=== PATIENT | female | born 1975 | race Caucasian/White ===

== ENCOUNTER 2023-04-21 19:01 | Emergency (ER) | payer OTHER, SELFPAY ==
[2023-04-21 19:03] VITALS: BP 235/164; BMI 41.4
--- NOTE | 2023-04-21 19:08 | EDRN ---
Pt is visibly upset from previous EKG, will recheck bp when pt had calmed down.
[2023-04-21 19:31] VITALS: BP 208/142
[2023-04-21 20:00] VITALS: BP 168/116
[2023-04-21 21:02] LABS: % Basophils 0.3 % (0-2); % Eosinophils 1.9 % (0-6); % Immature Granulocytes 0.5 % (0-0.5); % Lymphocytes 26.7 % (20.5-51.1); % Monocytes 8.2 % (1.7-9.3); % Neutrophils 62.4 % (42.2-75.2); Absolute Eosinophils 0.1 10^3/uL (0-0.7); Absolute Lymphocytes 1.5 10^3/uL (1.2-3.4); Absolute Monocytes 0.5 10^3/uL (0.1-0.6); Absolute Neutrophils 3.6 10^3/uL (1.4-6.5); Hematocrit 39.9 % (37.0-47.0); Hemoglobin 14.6 g/dL (12.0-16.0); Mean Corp Hgb Conc. 36.6 g/dL (33.0-37.0); Mean Corpuscular Hgb 34.5 pg (27.0-31.0); Mean Corpuscular Volume 94.3 fL (81.0-99.0); Mean Platelet Volume 9.3 fL (7.4-10.4); Nucleated Red Blood Cells % 0 %; Platelet Count 277 10^3/uL (130-400); Red Blood Cell Count 4.23 10^6/uL (4.20-5.40); Red Cell Dist. Width 13.7 % (11.5-14.5); White Blood Cell Count 5.7 10^3/uL (4.8-10.8)
[2023-04-21 21:14] LABS: ALT (SGPT) 94 U/L (0-35); AST (SGOT) 181 U/L (14-36); Albumin 4.5 g/dl (3.5-5.0); Alkaline Phosphatase 163 U/L (38-126); Blood Urea Nitrogen 6 mg/dl (7-17); Calcium 8.8 mg/dl (8.4-10.2); Carbon Dioxide 29 mmol/L (22-30); Chloride 101 mmol/L (98-107); Estimated Creatinine Clearance > 125 ml/min; Glucose 114 mg/dl (70-99); Potassium 4.1 mmol/L (3.5-5.1); Sodium 136 mmol/L (135-145); Total Bilirubin 1.3 mg/dl (0.2-1.3); Total Protein 7.6 g/dl (6.3-8.2); eGFR > 60.00
[2023-04-21 21:21] LABS: COVID-19 Antigen Negative (Negative)
[2023-04-21 21:29] LABS: Troponin I < 0.012 ng/ml
[2023-04-21 21:54] VITALS: BP 186/119
--- NOTE | 2023-04-21 23:42 | ED.GENMED ---
History of Present Illness
General
Chief Complaint: Cough
Source: patient
Exam Limitations: none
Time Seen by Provider: 04/21/23 20:35
Nursing documentation reviewed up to this point in time: agreed with
Travel History
Have you had any contact with someone who has COVID-19?: No
Do you have any symptoms of coronavirus? Fever > 100 degrees, chills, cough, shortness of breath, sore throat, loss of taste or smell, muscle aches, or headache?: No
History of Present Illness
History of Present Illness:
Patient to ED with complaint of cough. Symptms started on Wednesday. She was seen by urgent care, told she was having a heart attack and sent to ED. She denies any cp/pressure, SOB. Denies fever/chills.
Past History
Past History
ED Past Medical History: HTN and Other (glaucoma)
ED Past Surgical History: Tonsilectomy
Social History
Tobacco: Non-smoker
Alcohol: None
Drug: None
Review of Systems
Review of Systems
Allergies reviewed?: Yes
All Other Systems: ROS reviewed and negative except as documented in HPI and ROS
Constitutional: Reports no symptoms
EENT: Reports no symptoms
Respiratory: Reports cough
Cardiac: Reports no symptoms
ABD/GI: Reports no symptoms
: Reports no symptoms
Musculoskeletal: Reports no symptoms
Skin: Reports no symptoms
Neurological: Reports no symptoms
Psychiatric: Reports no symptoms
Phy Exam
General Physical Exam
General Presentation: well appearing and no apparent distress
General age: appears stated age
General Skin: warm and dry
General Habitus: normal
General Mental: alert
Cardiovascular Exam
Cardiovascular Exam: regular rate/rhythm and no edema
Pulmonary Exam
Pulmonary Exam: lungs clear, no respiratory distress and chest non tender
Cough: coarse cough and non productive cough
Musculoskeletal Exam
Musculoskeletal Exam: full ROM
Skin Exam
Skin Exam: normal color, warm/dry and no rash
Psychiatric Exam
Psychiatric Exam: normal mood/affect
Course
Orders/Labs/Results
Orders:
Orders
04/21/23 19:07
EKG [Electrocardiogram (*1)] Urgent
Reason for Study: Fatigue / Weakness
EKG- Treatment ONCE
04/21/23 20:43
CR Chest - 2 Views Urgent
Comment:
Reason For Exam: cough
04/21/23 20:48
COVID-19 Antigen Urgent
Source: Nasal Swab
Complete Blood Count/With Diff Urgent
Comprehensive Metabolic Panel Urgent
Troponin I Urgent
Influenza A+B Rapid Molecular Urgent
SHANNON Source: Nasal Swab
Specimen Description:
Abnormal Lab Results
04/21/23
20:48
MCH 34.5 H pg
(27.0-31.0)
BUN 6 L mg/dl
(7-17)
Glucose 114 H mg/dl
(70-99)
AST 181 H U/L
(14-36)
ALT 94 H U/L
(0-35)
Alkaline Phosphatase 163 H U/L
(38-126)
04/21/23 20:48
04/21/23 20:48
Vital Signs
Initial and Last Documented VS:
Initial Vital Signs
Temp Pulse Resp BP Pulse Ox
99 F 108 16 235/164 98
04/21/23 19:03 04/21/23 19:03 04/21/23 19:03 04/21/23 19:03 04/21/23 19:03
Last Documented Vital Signs
Temp Pulse Resp BP Pulse Ox
98.3 F 101 18 186/119 98
04/21/23 19:48 04/21/23 22:15 04/21/23 22:15 04/21/23 21:54 04/21/23 22:15
*Radiology
Radiology exam reviewed: radiology read reviewed
*Pulse Oximetry
Patient hypoxic: no
*EKG
Rate: normal
Rhythm: sinus
*Critical Care Note
Total Time (30-74mins, 75-104mins- exclusive of procedures): Not Applicable
ED Attending Note
-
Portions of this chart may have been created with voice recognition software.� Occasional wrong word or��sound alike� substitutions may have occurred due to the inherent limitations of voice recognition software.
Discharge Plan
Departure
Patient Disposition: Home (Routine Discharge)
Date of Disposition: 04/21/23
Time of Disposition: 22:08
Patient with high blood pressure during this ER visit?: No
Condition: Good
Covid-19: Not Applicable
Discharge Problem:
Cough in adult
Instructions: Cough, Adult (DC)
Prescriptions:
No Action
cetirizine [Zyrtec] 10 mg Tablet
10 mg PO HS
diphenhydramine HCl [Benadryl] 25 mg Capsule
50 mg PO HS
ibuprofen 200 mg Capsule
400 mg PO Q6H
Referrals:
UNKNOWN - PT DOES,NOT KNOW [Family Provider] -
Activity Restrictions/Additional Instructions:
Follow up with your family doctor. Return to the emergency department immediately for any difficulty breathing.
Interventions
Interventions:
*Risk Screen - Suicide Last Done: 04/21/23 19:03
*General Assessment Last Done: 04/21/23 22:15
*Neglect/Abuse Screening Last Done: 04/21/23 19:03
ED- Fall Risk Assessment Last Done: 04/21/23 19:45
*ED COVID-19 Vaccine History Last Done: 04/21/23 19:03
*Nursing Disposition Last Done: 04/21/23 22:15
ED- Pulmonary Assessment Last Done: 04/21/23 19:45
Discharge Date and Time
Discharge Date/Time: 04/21/23 22:17
== END 2023-04-21 22:17 | disposition home or self-care (01) ==
LOC: EMR 19:01
PROVIDERS: Nurse Practitioner; EMERGENCY PHYSICIAN Emergency Medicine
DX: R05.9 Cough, unspecified (principal)
CPT/HCPCS: 99285; 71046; 80053; 84484; 85025; 87502; 87811; 93005

== ENCOUNTER → 2023-05-11 07:03 | Outpatient (REF) | payer OTHER, SELFPAY | LOC: HWRCS 07:03 | PROVIDERS: ATTENDING PHYSICIAN Nurse Practitioner Family | DX: R94.31 Abnormal electrocardiogram [ECG] [EKG] (principal); I10 Essential (primary) hypertension; E78.2 Mixed hyperlipidemia; Z68.41 Body mass index [BMI] 40.0-44.9, adult | CPT/HCPCS: 93306 ==

== ENCOUNTER → 2024-02-29 11:52 | Outpatient (REF) | payer OTHER, SELFPAY | LOC: PAVMRI 11:52 | PROVIDERS: ATTENDING PHYSICIAN Nurse Practitioner Primary Care | DX: R25.1 Tremor, unspecified (principal); Z82.0 Family history of epilepsy and other diseases of the nervous system | CPT/HCPCS: 70553; A9575 ==

== ENCOUNTER → 2024-08-07 07:33 | Outpatient (REF) | payer OTHER, SELFPAY | LOC: HWRAD 07:33 | PROVIDERS: ATTENDING PHYSICIAN Nurse Practitioner Primary Care | DX: E78.2 Mixed hyperlipidemia (principal); R73.03 Prediabetes; R79.89 Other specified abnormal findings of blood chemistry; F10.11 Alcohol abuse, in remission | CPT/HCPCS: 76700 ==

== ENCOUNTER → 2024-08-21 14:44 | Outpatient (REF) | payer OTHER, SELFPAY | LOC: EMG 14:44 | PROVIDERS: ATTENDING PHYSICIAN Nurse Practitioner Primary Care | DX: R20.0 Anesthesia of skin (principal) | CPT/HCPCS: 95886; 95911 ==

== ENCOUNTER → 2024-09-20 14:18 | Outpatient (REF) | payer OTHER, SELFPAY | LOC: RCS 14:18 | PROVIDERS: ATTENDING PHYSICIAN Nurse Practitioner Primary Care | DX: R94.31 Abnormal electrocardiogram [ECG] [EKG] (principal); I10 Essential (primary) hypertension; R06.09 Other forms of dyspnea | CPT/HCPCS: 93017; 93350; Q9950 ==

== ENCOUNTER 2024-10-27 06:20 | Day surgery (SDC) | payer OTHER, SELFPAY ==
[2024-10-11 14:10] VITALS: BMI 37.3
[2024-10-11 14:36] LABS: Hematocrit 32.2 % (37.0-47.0); Hemoglobin 10.8 g/dL (12.0-16.0); Mean Corp Hgb Conc. 33.5 g/dL (33.0-37.0); Mean Corpuscular Volume 83.6 fL (81.0-99.0); Platelet Count 366 10^3/uL (130-400); Red Cell Dist. Width 14.3 % (11.5-14.5)
[2024-10-11 15:29] LABS: Blood Urea Nitrogen 21 mg/dl (7-17); Calcium 9.6 mg/dl (8.4-10.2); Carbon Dioxide 31 mmol/L (22-30); Chloride 101 mmol/L (98-107); Estimated Creatinine Clearance 72 ml/min; Glucose 96 mg/dl (70-99); Potassium 4.8 mmol/L (3.5-5.1); Sodium 138 mmol/L (135-145); eGFR 50.10
--- NOTE | 2024-10-20 10:08 | PTCARENOTE ---
Patients 10/11 creat- 1.3; GFR 50/10- [place] @ Dr. Kay office notified
[2024-10-27] VITALS (9 sets, daily range): BP systolic 110–144; BP diastolic 54–91; BMI 37.3
[2024-10-27] MEDS: TYLENOL 1000 MG PO (11:23)
[2024-10-27] MEDS: NORMOSOL-R/PLASMALYTE-A 1000 IV (11:35)
--- NOTE | 2024-10-27 11:39 | HP.FOC2 ---
Focused History & Physical
Chief Complaint
HPI:
Chief Complaint: Umbilical hernia
HPI / Indication for Planned Procedure: The patient is a 49-year-old female recently seen in outpatient surgical evaluation secondary to an area of visible swelling at her umbilicus. It has slightly increased in size and become more prominent since
losing 30 pounds with intentional weight loss. There is discomfort in the area particularly after meals. No symptoms suggestive of incarceration with obstruction or strangulation. Physical examination confirmed the presence of a moderate-sized
umbilical hernia with eversion of the umbilical stalk. Fascial defect estimated to be up to 3 cm. After discussions with patient regarding treatment options she wished to pursue operative correction. Patient presents today for robotic umbilical
hernia repair with mesh.
Relevant Past Medical History: Other (Asthma, depression, allergic rhinitis, glaucoma, hypertension, GERD)
Relevant Social History: Negative
Relevant Family History: Negative
Relevant Past Surgical History: Positive for (Bilateral mastectomy, uterine ablation, tonsils, D&C)
Review of Systems
Review of Pertinent Systems: All Systems Negative
Medication
See Medication form for detailed medications: Yes
Medication List (including Herbals & OTC):
cetirizine 10 mg tablet (Zyrtec) 10 mg PO HS 09/03/22
diphenhydramine HCl 25 mg capsule (Benadryl) 50 mg PO HS 09/03/22
B Complex 1 tab PO DAILY 10/20/24
Medical Marijuana 1 dose inhalation PRN PRN y 10/20/24
alpha lipoic acid 1 tab PO DAILY 10/20/24
hydrochlorothiazide 12.5 mg tablet 12.5 mg PO DAILY 10/20/24
loratadine 10 mg tablet (Claritin) 10 mg PO DAILY 10/20/24
metoprolol succinate 25 mg PO 1XD 10/20/24
omeprazole 20 mg capsule,delayed release 20 mg PO DAILY 10/20/24
sertraline 50 mg tablet 50 mg PO DAILY 10/20/24
trazodone 50 mg tablet 50 mg PO HS 10/20/24
triamcinolone acetonide 55 mcg nasal spray aerosol (Nasacort) 1 spray intranasal DAILY 10/20/24
Medications Reviewed: Yes
Allergies and Reactions
Patient has Allergies: Yes
Noted Allergies and Reactions:
Allergy/AdvReac Type Severity Reaction Status Date / Time
Penicillins Allergy Rash Verified 10/27/24 11:10
pollen extracts Allergy congestion Verified 10/27/24 11:10
Pertinent Physical Exam
All Other Systems: Negative
Head/Neck: Normal
Lungs: Normal
Heart: Normal
Abdomen: Other (Chronically incarcerated umbilical hernia with estimated 3 cm fascial defect)
Extremities: Normal
Neurological: Normal
Diagnosis / Assessment
Patient is a 49-year-old female presenting for scheduled operative correction of a symptomatic umbilical hernia
Plan / Procedure
Robotic assisted laparoscopic repair of umbilical hernia with mesh
Anesthesia/Sedation to be done by Anesthesia Provider: Yes
[2024-10-27 11:51] LABS: Hematocrit 33.5 % (37.0-47.0); Hemoglobin 11.1 g/dL (12.0-16.0); Mean Corp Hgb Conc. 33.1 g/dL (33.0-37.0); Mean Corpuscular Volume 83.8 fL (81.0-99.0); Platelet Count 377 10^3/uL (130-400); Red Cell Dist. Width 14.3 % (11.5-14.5)
[2024-10-27 12:20] LABS: Blood Urea Nitrogen 20 mg/dl (7-17); Calcium 9.0 mg/dl (8.4-10.2); Carbon Dioxide 27 mmol/L (22-30); Chloride 104 mmol/L (98-107); Estimated Creatinine Clearance 78 ml/min; Glucose 117 mg/dl (70-99); Potassium 4.0 mmol/L (3.5-5.1); Sodium 138 mmol/L (135-145); eGFR 55.15
--- NOTE | 2024-10-27 14:18 | W.IMMPOSTOP ---
Surgical Immed Post Op Note
-
Primary Surgeon: Jayce Todd MD
Assisting Surgeon: Tereza Kim PA-C
Pre-op Diagnosis: Chronically incarcerated umbilical hernia
Post-op Diagnosis: Chronically incarcerated umbilical hernia; 3.5 cm
Procedure Performed: Robotic assisted laparoscopic ABIGAIL repair incarcerated umbilical hernia with mesh; Bard soft 14 cm x 12 cm
Anesthesia Type: GETA +0.25% Marcaine
Specimen / Cultures: None
Estimated Blood Loss: 6 mL
Complications: None immediate
Operative Findings: Incidental finding of epiploic infarction or inflammation at the junction of the descending and sigmoid colon but there did not appear to be primary colitis. No purulence just induration and inflammation of a single epiploic
appendage.
Chronically incarcerated umbilical hernia containing omentum which was able to be reduced safely.
Transabdominal preperitoneal repair with left lateral abdominal robotic docking. Fascial defect 3.5 cm after cleared. Closure of fascia with 0 PDS STRATAFIX symmetric in a running continuous manner, double layer. Underlay preperitoneal mesh, Bard
soft mesh 14 cm vertically by 12 cm in width secured with 2-0 Vicryl suture centrally and along the right and left lateral borders of the mesh to posterior sheath. Peritoneal flap closed with 2-0 Monocryl STRATAFIX spiral suture. Negative pressure
Tegaderm gauze umbilical dressing placed. Glue dressings at robotic surgical sites.
The assistance of Tereza Kim PA-C was required due to the complexity of the procedure. During the procedure Tereza Kim PA-C assisted with port placement, robotic instrumentation and suture material exchanges, and closure of the surgical incision
sites. I was present for the entirety of the operative procedure.
--- NOTE | 2024-10-27 14:22 | OR.RPT ---
Operative Report
Operative Report
Date of operative procedure: 10/27/2024
Primary Surgeon: Jayce Todd MD
[facility] Counselor: Tereza iKm PA-C
Pre-op Diagnosis: Chronically incarcerated umbilical hernia
Post-op Diagnosis: Chronically incarcerated umbilical hernia, 3.5 cm
Procedure Performed: Robotic assisted laparoscopic ABIGAIL repair umbilical hernia with mesh; Bard soft mesh 14 cm x 12 cm
Anesthesia: GETA +0.25% Marcaine
Specimen / Cultures: None/none
Estimated Blood Loss: 6 mL
Complications: None immediate
Indications for Operative Procedure: The patient is a 49-year-old female recently seen in outpatient surgical evaluation secondary to an area of visible swelling at her umbilicus. It has slightly increased in size and become more prominent since
losing 30 pounds with intentional weight loss. There is discomfort in the area particularly after meals. No symptoms suggestive of incarceration with obstruction or strangulation. Physical examination confirmed the presence of a moderate-sized
umbilical hernia with eversion of the umbilical stalk. Fascial defect estimated to be up to 3 cm. After discussions with patient regarding treatment options she wished to pursue operative correction. Patient presents today for robotic umbilical
hernia repair with mesh.
Brief Summary of Operative Findings: Incidental finding of an epiploic infarction or inflammation at the junction of the descending and sigmoid colon but there did not appear to be colitis/diverticulitis nor active infection. The epiploic
appendage was not necrotic. No purulence just induration and inflammation of a single epiploic appendage so I proceeded with the planned umbilical hernia repair.
The chronically incarcerated umbilical hernia contained omentum which was able to be reduced safely.
Transabdominal preperitoneal repair with left lateral abdominal robotic docking. Fascial defect 3.5 cm after cleared. Closure of fascia with 0 PDS STRATAFIX symmetric in a running continuous manner, double layer. Underlay preperitoneal mesh, Bard
soft mesh 14 cm vertically by 12 cm in width secured with 2-0 Vicryl suture centrally and along the right and left lateral borders of the mesh to posterior sheath. Peritoneal flap closed with 2-0 Monocryl STRATAFIX spiral suture. Negative pressure
Tegaderm gauze umbilical dressing placed. Glue dressings at robotic surgical sites.
Operation in Detail: The patient was identified in the preoperative holding area. I confirmed the umbilical surgical site/location with the patient preoperatively. She was interviewed by the anesthesia and nursing staff then brought back to the
operating room. The patient was placed on the operating table in supine position. The bilateral upper extremities were carefully padded and tucked at the side utilizing the arm guard positioning system. Pneumatic compression boots were on the
bilateral lower extremities. Following induction of general endotracheal anesthesia the patient was administered Ancef 2 g IV for prophylactic antibiotic coverage. The patient's anterior abdominal wall was now widely and sterilely prepped with
ChloraPrep and then draped in the usual manner. The surgical time out was completed and the procedure was confirmed.
I initially proceeded with Veress needle insufflation at the left subcostal midclavicular line location. Once insufflated to 12 mmHg pressure then an 8 mm trocar was placed along the left lateral abdominal wall fci between the left costal
margin and the left ASIS and a palms breath out from the anticipated left lateral boarder of the mesh placement. The robotic scope was now inserted. There was no evidence of iatrogenic injury from access. The Veress needle was withdrawn. A left
subcostal lateral 8 mm trocar and a left lower quadrant 8 mm trocar just superior/medial to the ASIS were now placed under direct visualization. The patient was then transition into slight Trendelenburg and right side down to aid in exposure of the
anterior abdominal wall. The robot was then docked.
Upon inspection of the abdominal cavity an incidental finding of an epiploic infarction or inflammation at the junction of the descending and sigmoid colon was identified in the left lower quadrant. There did not appear to be
colitis/diverticulitis, bowel wall thickening nor active infection. The epiploic appendage was not necrotic. No purulence, just induration and inflammation of a single epiploic appendage so I proceeded with the planned umbilical hernia repair.
At the surgeon console inspection confirmed the presence of chronically incarcerated umbilical hernia containing omentum. The omentum was then carefully grasped and able to be manually reduced from the hernia. It was healthy and viable.
I initially began with the creation of a peritoneal flap along the left lateral abdominal wall. The flap was begun by incising the peritoneum along the left lateral aspect of the central abdominal wall fat pad cranially about 5cm superior to the
fascial defect. The peritoneal incision was now carried down further laterally into the left lower quadrant in an arc like manner with preservation of the posterior sheath. The preperitoneal plane was now established along the length of the flap
and developed towards the midline where the central abdominal wall fat pad was taken down with the peritoneum superiorly and inferiorly to the fascial defect. The hernia sac and contents were now completely reduced with care to preserve the dermis
of the umbilical stalk and its subcutaneous blood supply. The peritoneal flap along the entire length was now mobilized well onto the right lateral side of the abdominal wall to allow for mesh placement with good circumferential coverage.
The umbilical fascial defect was now measured to be 3.5 cm in maximal length; oriented horizontally. Fascial edges were confirmed to be cleared. No additional hernias in the area were noted. Defect was then closed with a running continuous 0 PDS
STRATAFIX symmetric suture along the horizontal orientation. The suture was then run back upon itself in a reverse direction for a double layer closure and to lock the barbed suture in place. A Bard soft mesh measuring 14 cm vertically by 12 cm in
width was then introduced through the 8mm trochar. The mesh was positioned within the peritoneal flap in an underlay fashion and centered over the fascial defect to get 5 cm of coverage in all directions from the midline and superiorly/inferiorly
from the defect. The mesh was then secured centrally to the linea alba at 3 separate locations with interrupted 2-0 Vicryl suture. The mesh was also secured at the right and left lateral borders with 3 additional interrupted 2-0 Vicryl sutures to
the posterior sheath on each respective side. Hemostasis was now assured. The left lateral margin of the peritoneal flap was closed with a running continuous 2-0 Monocryl STRATAFIX suture. The air was aspirated out of the flap with a flexible
suction catheter confirming complete occlusion of the flap. The peritoneal covering of the mesh was completely intact as well.
At this point the robot was undocked. All sponge, instrument and needle counts were confirmed to be correct x 2. The CO2 insufflation was now fully evacuated out of the abdominal cavity.
Inspection at the umbilicus revealed the stalk to be well inverted by the repair. There appeared to be a single point where the STRATAFIX suture breached the dermis. I carefully exposed the site and incised the skin parallel to this suture to
completely release it. This incision was about 5 mm and did not disrupt the fascial closure. The skin at the site was closed with a buried interrupted 4-0 Monocryl. A Xeroform dressing was applied followed by 4 x 4 gauze and a Tegaderm to which
negative pressure suction was utilized to make a pressure dressing.
The robotic trocar sites were removed as well as the flexible suction catheter. Skin was then closed with 4-0 Monocryl. Sterile surgical glue dressings were applied. The patient tolerated the procedure well and was transferred to the recovery
unit for routine postoperative monitoring.
The assistance of Tereza Kim PA-C was required due to the complexity of surgery. During the procedure Tereza Kim PA-C assisted with port placement, robotic instrument and suture material exchanges as well as closure of the surgical sites. I
was present for the entirety of the operative procedure.
[2024-10-27] MEDS: DILAUDID 0.5 MG IV (14:52)
== END 2024-10-27 15:48 | disposition home or self-care (01) ==
LOC: SDS 06:20
PROVIDERS: ATTENDING PHYSICIAN Surgery; FAMILY PHYSICIAN Nurse Practitioner Primary Care
DX: K42.0 Umbilical hernia with obstruction, without gangrene (principal); K42.9 Umbilical hernia without obstruction or gangrene
CPT/HCPCS: 49593; 36415; 80048; 85027; 93005; C1781

== ENCOUNTER → 2024-11-30 08:30 | Outpatient (REF) | payer OTHER, SELFPAY | LOC: MRI 08:30 | PROVIDERS: ATTENDING PHYSICIAN Internal Medicine Cardiovascular Disease; FAMILY PHYSICIAN Nurse Practitioner Primary Care | DX: I47.29 Other ventricular tachycardia (principal); R94.39 Abnormal result of other cardiovascular function study | CPT/HCPCS: 75561; 75565; A9585 ==

== ENCOUNTER 2025-01-03 06:21 | Day surgery (SDC) | payer OTHER, SELFPAY | END 2025-01-03 13:22 | disposition home or self-care (01) | LOC: GI 06:21 | PROVIDERS: ATTENDING PHYSICIAN Internal Medicine Gastroenterology | DX: Z12.11 Encounter for screening for malignant neoplasm of colon (principal); R12 Heartburn; K57.30 Diverticulosis of large intestine without perforation or abscess without bleeding; K22.2 Esophageal obstruction; K44.9 Diaphragmatic hernia without obstruction or gangrene; K31.7 Polyp of stomach and duodenum; Z80.0 Family history of malignant neoplasm of digestive organs; D12.0 Benign neoplasm of cecum; D12.2 Benign neoplasm of ascending colon | CPT/HCPCS: 45385; 43239; 88305 ==

== ENCOUNTER → 2025-01-25 17:20 | Outpatient (REF) | payer OTHER, SELFPAY | LOC: RAD 17:20 | PROVIDERS: ATTENDING PHYSICIAN Nurse Practitioner Primary Care | DX: M79.672 Pain in left foot (principal) | CPT/HCPCS: 73630 ==

== ENCOUNTER → 2025-02-02 14:24 | Outpatient (REF) | payer OTHER, SELFPAY | LOC: HWRAD 14:24 | PROVIDERS: ATTENDING PHYSICIAN Nurse Practitioner Primary Care; REFERRING PHYSICIAN Obstetrics & Gynecology Gynecology | DX: N95.0 Postmenopausal bleeding (principal) | CPT/HCPCS: 76830; 76856 ==

== ENCOUNTER 2025-02-27 07:18 | Day surgery (SDC) | payer OTHER, SELFPAY ==
[2025-02-27 09:15] VITALS: BMI 37.6
[2025-02-27 09:30] VITALS: BP 125/81
[2025-02-27 09:46] VITALS: BMI 37.6
[2025-02-27 11:00] VITALS: BP 121/86
[2025-02-27 11:15] VITALS: BP 131/93
[2025-02-27 11:30] VITALS: BP 136/101
== END 2025-02-27 11:44 | disposition home or self-care (01) ==
LOC: SDS 07:18
PROVIDERS: ATTENDING PHYSICIAN Internal Medicine Gastroenterology
DX: K44.9 Diaphragmatic hernia without obstruction or gangrene (principal); K31.89 Other diseases of stomach and duodenum; K86.9 Disease of pancreas, unspecified
CPT/HCPCS: 43237; 43239; 88305

== ENCOUNTER → 2025-03-01 14:38 | Outpatient (REF) | payer OTHER, SELFPAY | LOC: MRI 14:38 | PROVIDERS: ATTENDING PHYSICIAN Nurse Practitioner Primary Care | DX: K76.9 Liver disease, unspecified (principal); K75.81 Nonalcoholic steatohepatitis (NASH) | CPT/HCPCS: 74183; 76391; A9575 ==